=== PATIENT | male | born 1980 | race Two or more races ===

== ENCOUNTER 2017-12-24 12:20 | Emergency (ER) | payer OTHER ==
[~2017-12-24] VITALS: Ht 172.7 cm; Wt 65.8 kg
[~2017-12-24 12:20] MED LIST: AMOXICILLIN500 MG ORAL; ROBITUSSIN COU118 M4 PO
--- NOTE | 2017-12-24 13:19 | Emergency Room Report ---
History of Present Illness General Chief Complaint: Sore Throat Source: Patient Present Illness HPI 37-year-old male presents to the emergency department complaining of 6 out of 10 in severity sore throat 3 days. Denies fevers or chills. Patient reports some left ear pain as well denies headache, neck pain or stiffness, cough,, recent travel or ill contacts. Patient reports some nasal congestion and rhinorrhea. Pain is exacerbated with swallowing. Denies significant pmhx. Allergies: Coded Allergies: No Known Allergies (Unverified , 12/24/17) Patient History Past Medical History: see triage record Past Surgical History: none Pertinent Family History: none Immunizations: UTD Reviewed Nursing Documentation: PMH: Agreed; PSxH: Agreed Nursing Documentation-PMH Past Medical History: No Stated History Review of Systems All Other Systems: negative except mentioned in HPI Physical Exam Vital Signs Date Time Temp Pulse Resp B/P (MAP) Pulse Ox O2 Delivery O2 Flow Rate FiO2 12/24/17 12:30 98.4 55 16 114/58 98 Room Air Sp02 EP Interpretation: reviewed, normal General Appearance: no apparent distress, alert, GCS 15, non-toxic Head: normocephalic, atraumatic Eyes: bilateral eye normal inspection, bilateral eye PERRL ENT: hearing grossly normal, normal voice, TMs + canals normal - moderate cerumen in the left ear, no evidence of infection. , uvula midline, moist mucus membranes, nasal congestion, pharyngeal erythema - no exudates or tonsillar swelling. , other Neck: full range of motion Respiratory: lungs clear, normal breath sounds, speaking full sentences Cardiovascular #1: regular rate, rhythm, no edema Musculoskeletal: back normal, gait/station normal, normal range of motion, non- tender Neurologic: alert, oriented x3, responsive, motor strength/tone normal, sensory intact, normal gait, speech normal, grossly normal Psychiatric: judgement/insight normal Skin: normal color, no rash, warm/dry, well hydrated Lymphatic: no adenopathy Medical Decision Making PA Attestation Dr. nash is my supervising Physician whom patient management has been discussed with. Diagnostic Impression: Primary Impression: Acute viral pharyngitis Additional Impression: Excessive cerumen in left ear canal ER Course 37-year-old male presents to the emergency department complaining of 6 out of 10 in severity sore throat 3 days. Denies fevers or chills. Patient reports some left ear pain as well denies headache, neck pain or stiffness, cough,, recent travel or ill contacts. Patient reports some nasal congestion and rhinorrhea. Pain is exacerbated with swallowing. Denies significant pmhx. 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 is afebrile H&PE are most consistent with: pharyngitis presumed to be viral , does not meet centor criteria. --moderate cerumen in the left ear, no evidence of infection. ORDERS: None required at this time as the diagnosis is clinical ED INTERVENTIONS: none required at this time. DISCHARGE: At this time pt. is stable for d/c to home. Will provide printed patient care instructions, and any necessary prescriptions. Care plan and follow up instructions have been discussed with the patient prior to discharge. Last Vital Signs Date Time Temp Pulse Resp B/P (MAP) Pulse Ox O2 Delivery O2 Flow Rate FiO2 12/24/17 12:30 98.4 55 16 114/58 98 Room Air Disposition: HOME, SELF-CARE Condition: Stable Scripts Carbamide Peroxide (DEBROX) 15 Ml Drops 10 DROP LEFT EAR TWICE A DAY for 4 Days, #15 ML 0 Refills Prov: Dorinda Torres 12/24/17 Acetaminophen* (TYLENOL EXTRA STRENGTH*) 500 Mg Tablet 500 MG ORAL Q6H, #20 TAB 0 Refills Prov: Dorinda Torres 12/24/17 Lidocaine HCl (Lidocaine HCl Viscous) 100 Ml Solution 10 MG MM QID, #220 ML Prov: Dorinda Torres 12/24/17 Patient Instructions: Sore Throat Additional Instructions: Take medications as directed. Follow up with a Primary Care Provider in 3-5 days, even if your symptoms have resolved. --Please review list of primary care clinics, if you do not already have a primary care provider Return sooner to ED if new symptoms occur, or current symptoms become worse. - Please note that this Emergency Department Report was dictated using [employer] service clerk technology software, occasionally this can lead to erroneous entry secondary to interpretation by the dictation equipment. Dorinda Torres Dec 24, 2017 13:19
[2017-12-24] MEDS ORDERED: DEBROX15 M1 LEFT EAR (13:23)
[2017-12-24] MEDS ORDERED: LIDOCAINE20 MG/1 M1 MM (13:23)
[2017-12-24] MEDS ORDERED: TYLENOL EXTRA500 MG ORAL (13:23)
[2017-12-24 13:30] VITALS: BP 115/62
[2017-12-24 13:35] VITALS: BP 115/62
== END 2017-12-24 13:35 | disposition home or self-care (01) ==
LOC: EMR 13:18
DX: J02.8 Acute pharyngitis due to other specified organisms (principal); B97.89 Other viral agents as the cause of diseases classified elsewhere; H61.22 Impacted cerumen, left ear
CPT/HCPCS: 99283

== ENCOUNTER 2018-01-21 12:52 | Emergency (ER) | payer OTHER ==
[~2018-01-21] VITALS: Ht 172.7 cm; Wt 70.3 kg
[~2018-01-21 12:52] MED LIST changes: +DEBROX15 M1 LEFT EAR; +LIDOCAINE20 MG/1 M1 MM; +TYLENOL EXTRA500 MG ORAL
[2018-01-21 13:05] VITALS: BP 105/67
[2018-01-21] MEDS ORDERED: TYLENOL EXTRA500 MG ORAL (13:23)
[2018-01-21] MEDS ORDERED: AMOXICILLIN500 MG ORAL (13:23)
--- NOTE | 2018-01-21 13:23 | Emergency Room Report ---
History of Present Illness General Chief Complaint: Sore Throat Source: Patient Present Illness HPI 37-year-old male patient presents the ER complaining of sore throat for the past week. Reports history of similar symptoms in the past. Denies fever during this time. Reports took 1 dose of Tylenol earlier this week, states has not taken it since that time. Denies cough. Denies chest pain, shortness of breath, vomiting. Patient was seen here in the ER 1 month ago, discharged home with viral pharyngitis at that time. Allergies: Coded Allergies: No Known Allergies (Unverified , 01/21/18) Patient History Past Medical History: see triage record Reviewed Nursing Documentation: PMH: Agreed; PSxH: Agreed Nursing Documentation-PMH Past Medical History: No Stated History Review of Systems All Other Systems: negative except mentioned in HPI Physical Exam Vital Signs Date Time Temp Pulse Resp B/P (MAP) Pulse Ox O2 Delivery O2 Flow Rate FiO2 01/21/18 12:59 98.6 52 16 106/64 97 Room Air Sp02 EP Interpretation: reviewed, normal General Appearance: well appearing, no apparent distress, alert, GCS 15, non- toxic Head: normocephalic, atraumatic Eyes: bilateral eye normal inspection, bilateral eye PERRL ENT: hearing grossly normal, normal pharynx, no angioedema, normal voice, uvula midline, moist mucus membranes, nasal congestion, tonsillar swelling, tonsillar exudate, other - uvula midline Neck: full range of motion Respiratory: lungs clear, normal breath sounds, no rhonchi, no respiratory distress, no accessory muscle use, no wheezing, speaking full sentences Cardiovascular #1: regular rate, rhythm, no edema Musculoskeletal: back normal, digits/nails normal, gait/station normal, normal range of motion, non-tender Neurologic: alert, oriented x3, responsive, motor strength/tone normal, sensory intact Skin: no rash Lymphatic: adenopathy - Cervical Medical Decision Making PA Attestation Dr. Zuniga is my supervising Physician whom patient management has been discussed with. Diagnostic Impression: Primary Impression: Tonsillitis ER Course Pt presents to ED c/o sore throat. DDX considered but are not limited to influenza, viral URI, strep throat, pharyngitis, tonsillitis. no uvula deviation, no neck stiffness, no stridor, no tripoding, low suspicion for peritonsillar abscess. VITAL SIGNS are WNL, patient is afebrile ER COURSE: tonsillar exudates, tonsillar swelling, lymphadenopathy, no cough, likely pharyngitis. Will provide antibiotic treatment. Continue taking Tylenol for relief of symptoms. saltwater gargles. Drink plenty of fluids. Symptomatic treatment. DISCHARGE: Rx provided for amoxicillin -Rx given for Acetaminophen for fever/pain. At this time pt is stable for d/c to home. Patient resting comfortably, in no acute distress, nontoxic appearing, talking without difficulty Patient to take medications as instructed. Will provide with patient care instructions and any necessary prescriptions. Care plan and follow-up instructions provided. Patient instructed to follow-up with primary care provider in 3 - 5 days. Patient questions asked and answered. ER precautions given. Patient instructed to return to ER immediately for any new or worsening of symptoms including but not limited to fever, SOB, difficulty swallowing. - Please note that this Emergency Department Report was dictated using [employer] process engineer technology software, occasionally this can lead to erroneous entry secondary to interpretation by the dictation equipment. Last Vital Signs Date Time Temp Pulse Resp B/P (MAP) Pulse Ox O2 Delivery O2 Flow Rate FiO2 01/21/18 12:59 98.6 52 16 106/64 97 Room Air Disposition: HOME, SELF-CARE Condition: Stable Scripts Acetaminophen* (TYLENOL EXTRA STRENGTH*) 500 Mg Tablet 500 MG ORAL Q8H PRN for Prn Headache/Temp > 101, #30 TAB 0 Refills Prov: Al Obregon 01/21/18 Amoxicillin* (AMOXIL*) 500 Mg Capsule 500 MG ORAL BID for 7 Days, #14 CAP Prov: Al Obregon 01/21/18 Patient Instructions: Tonsillitis Additional Instructions: Followup with primary care provider in 3 -5 days. Salt water gargles Take Tylenol for pain and fever symptoms Drink plenty of water. Take medications as directed. Patient questions asked and answered. ER precautions given, patient instructed to return to ER immediately for any new or worsening of symptoms including but not limited to intractable vomiting, difficulty breathing, inability to eat. Al Obregon Jan 21, 2018 13:23
[2018-01-21 13:39] VITALS: BP 112/68
== END 2018-01-21 13:39 | disposition home or self-care (01) ==
LOC: EMR 13:20
DX: J03.90 Acute tonsillitis, unspecified (principal)
CPT/HCPCS: 99283

== ENCOUNTER 2018-10-03 15:29 | Emergency (ER) | payer BC, OTHER ==
[~2018-10-03] VITALS: Ht 172.7 cm; Wt 65.8 kg
[2018-10-03] MEDS ORDERED: NKM (15:37)
--- NOTE | 2018-10-03 15:38 | NUR ---
ED Nurse Note: pt walked in to ED C/O coughing for the last 5 days. pt states he coughs up greenish sputum at times, but most of the time is dry cough. VSS. pt is alert x4.
[2018-10-03 15:39] VITALS: BP 120/60
--- NOTE | 2018-10-03 15:57 | Emergency Room Report ---
History of Present Illness General Chief Complaint: Upper Respiratory Illness Source: Patient Present Illness HPI 38-year-old male with no significant past medical history here complaining of 3 days of 10 out of 10 sore throat and cough with green phlegm as well as congestion. Denies fever and chills. Patient reports that he has been a tobacco smoker for many years. Denies chest pain, shortness of breath, wheezing , abdominal pain, nausea vomiting. Has not taken medication for symptom relief. Patient is in no distress. Denies recent travel and sick contact Allergies: Coded Allergies: No Known Allergies (Unverified , 01/21/18) Patient History Past Medical History: see triage record Past Surgical History: unable to obtain Pertinent Family History: none Social History: Reports: smoking - tobacco Immunizations: UTD Reviewed Nursing Documentation: PMH: Agreed; PSxH: Agreed Nursing Documentation-PMH Past Medical History: No Stated History Review of Systems All Other Systems: negative except mentioned in HPI Physical Exam Vital Signs Date Time Temp Pulse Resp B/P (MAP) Pulse Ox O2 Delivery O2 Flow Rate FiO2 10/03/18 15:33 98.6 68 19 121/60 (80) 95 Room Air 10/03/18 15:40 97 Sp02 EP Interpretation: reviewed, normal General Appearance: no apparent distress, alert, GCS 15, non-toxic Head: normocephalic, atraumatic Eyes: bilateral eye normal inspection, bilateral eye PERRL ENT: TMs + canals normal, pharyngeal erythema, tonsillar exudate Neck: no meningismus, other - Anterior cervical lymphadenopathy Respiratory: chest non-tender, lungs clear, normal breath sounds, no rhonchi, no wheezing, speaking full sentences Cardiovascular #1: regular rate, rhythm, no edema, no murmur Gastrointestinal: normal bowel sounds, non tender, soft, non-distended, no guarding, no rebound Genitourinary: normal inspection, no CVA tenderness Musculoskeletal: normal inspection, back normal Neurologic: alert, oriented x3, responsive, motor strength/tone normal, sensory intact, speech normal Psychiatric: judgement/insight normal, memory normal, mood/affect normal, no suicidal/homicidal ideation Skin: no rash Lymphatic: adenopathy - Anterior cervical Medical Decision Making PA Attestation Diagnosis and treatment plans were reviewed and discussed with my supervising physician Dr. Shah Diagnostic Impression: Primary Impression: Tonsillitis with exudate ER Course 38-year-old male with no significant past medical history here complaining of 3 days of 10 out of 10 sore throat and cough with green phlegm as well as congestion. Denies fever and chills. Patient reports that he has been a tobacco smoker for many years. Denies chest pain, shortness of breath, wheezing , abdominal pain, nausea vomiting. Has not taken medication for symptom relief. Patient is in no distress. Denies recent travel and sick contact Ddx considered but are not limited to: strep pharyngitis, URI, tonsilitis, peritonsillar absacess, influneza Vital signs: are WNL, pt. is afebrile H&PE are most consistent with: Tonsillitis with exudate ORDERS: Azithromycin, Phenergan, Flonase ED INTERVENTIONS: None required at this time. DISCHARGE: At this time pt. is stable for d/c to home. Will provide printed patient care instructions, and any necessary prescriptions. Care plan and follow up instructions have been discussed with the patient prior to discharge. Take medication as directed follow-up with primary care provider worsening symptoms return to the emergency room refrain from smoking Last Vital Signs Date Time Temp Pulse Resp B/P (MAP) Pulse Ox O2 Delivery O2 Flow Rate FiO2 10/03/18 15:40 75 17 Room Air 97 10/03/18 15:39 98.5 120/60 97 Disposition: HOME, SELF-CARE Condition: Stable Patient Instructions: Tonsillitis, [id number] Additional Instructions: Take medication as directed follow-up with primary care provider worsening symptoms return to the emergency room refrain from smoking Lele Zuñiga Oct 03, 2018 15:57
[2018-10-03] MEDS ORDERED: FLONASE ALLERG9.9 ML NS (15:59)
[2018-10-03] MEDS ORDERED: ZITHROMAX250 MG ORAL (15:59)
[2018-10-03] MEDS ORDERED: PROMETHAZI6.25 MG/1 ORAL (15:59)
[2018-10-03 16:08] VITALS: BP 126/64
--- NOTE | 2018-10-03 16:08 | NUR ---
ER DISCHARGE NOTE: Patient is cleared to be discharged per ERMD, pt is aox4, on room air, with stable vital signs. pt was given dc and prescription instructions, pt was able to verbalize understanding, pt id band removed without complications. pt is able to ambulate with steady gait. pt took all belongings.
== END 2018-10-03 16:08 | disposition home or self-care (01) ==
LOC: EMR 15:55
DX: J03.90 Acute tonsillitis, unspecified (principal); F17.200 Nicotine dependence, unspecified, uncomplicated
CPT/HCPCS: 99282

== ENCOUNTER 2018-11-22 14:27 | Emergency (ER) | payer BC ==
[~2018-11-22] VITALS: Ht 172.7 cm; Wt 65.8 kg
[~2018-11-22 14:27] MED LIST changes: +FLONASE ALLERG9.9 ML NS; +NKM; +PROMETHAZI6.25 MG/1 ORAL; +ZITHROMAX250 MG ORAL
[2018-11-22 14:45] VITALS: BP 114/64
--- NOTE | 2018-11-22 14:55 | NUR ---
ED Nurse Note: ambulated in to ED due to soethroat since Sat. Pt states that he smoked alot on sat but stoped after having symptoms. Pt reports [facility] ED previous visit for same reasons.
--- NOTE | 2018-11-22 15:33 | Emergency Room Report ---
History of Present Illness General Chief Complaint: Sore Throat Source: Patient Present Illness HPI 38 YO male presents to the emergency department complaining of 6 out of 10 severity progressive sore throat with fevers and chills responding well to Motrin x7 days. Patient denies cough he denies neck pain or stiffness he denies headache or photophobia. Patient denies recent travel or ill contacts with similar symptoms. Patient reports swallowing exacerbates his symptoms to 10 out of 10 severity. No other aggravating or relieving factors at this time. Allergies: Coded Allergies: No Known Allergies (Unverified , 01/21/18) Patient History Past Medical History: see triage record Past Surgical History: none Pertinent Family History: none Reviewed Nursing Documentation: PMH: Agreed; PSxH: Agreed Nursing Documentation-PMH Past Medical History: No Stated History Review of Systems All Other Systems: negative except mentioned in HPI Physical Exam Vital Signs Date Time Temp Pulse Resp B/P (MAP) Pulse Ox O2 Delivery O2 Flow Rate FiO2 11/22/18 14:40 98.4 61 18 114/64 (81) 97 Room Air Sp02 EP Interpretation: reviewed, normal General Appearance: no apparent distress, alert, GCS 15, non-toxic Head: normocephalic, atraumatic Eyes: bilateral eye normal inspection, bilateral eye PERRL ENT: hearing grossly normal, normal voice, tonsillar swelling, pharyngeal erythema, tonsillar exudate Neck: full range of motion, no meningismus Respiratory: lungs clear, normal breath sounds, no respiratory distress, no wheezing, speaking full sentences Musculoskeletal: gait/station normal, normal range of motion, non-tender Neurologic: alert, oriented x3, responsive, motor strength/tone normal, sensory intact, speech normal, grossly normal Psychiatric: judgement/insight normal Skin: no rash Lymphatic: no adenopathy Medical Decision Making PA Attestation Dr. Ayala is my supervising Physician whom patient management has been discussed with. Diagnostic Impression: Primary Impression: Pharyngitis Qualified Codes: J02.0 - Streptococcal pharyngitis ER Course 38 YO male presents to the emergency department complaining of 6 out of 10 severity progressive sore throat with fevers and chills responding well to Motrin x7 days. Patient denies cough he denies neck pain or stiffness he denies headache or photophobia. Patient denies recent travel or ill contacts with similar symptoms. Patient reports swallowing exacerbates his symptoms to 10 out of 10 severity. No other aggravating or relieving factors at this time. 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 is afebrile H&PE are most consistent with: pharyngitis presumed strep. ORDERS: None required at this time as the diagnosis is clinical ED INTERVENTIONS: none required at this time. DISCHARGE: At this time pt. is stable for d/c to home. Will provide printed patient care instructions, and any necessary prescriptions. Care plan and follow up instructions have been discussed with the patient prior to discharge. Last Vital Signs Date Time Temp Pulse Resp B/P (MAP) Pulse Ox O2 Delivery O2 Flow Rate FiO2 11/22/18 14:40 98.4 61 18 114/64 (81) 97 Room Air Disposition: HOME, SELF-CARE Condition: Stable Patient Instructions: Tonsillitis Additional Instructions: Take medications as directed. Follow up with a Primary Care Provider in 3-5 days, even if your symptoms have resolved. Return sooner to ED if new symptoms occur, or current symptoms become worse. - Please note that this Emergency Department Report was dictated using [employer] technician technology software, occasionally this can lead to erroneous entry secondary to interpretation by the dictation equipment. Dorinda Torres Nov 22, 2018 15:33
[2018-11-22] MEDS ORDERED: LIDOCAINE VISC100 ML ORAL (15:34)
[2018-11-22] MEDS ORDERED: AUGMENTIN 875-1 EAC1 ORAL (15:34)
[2018-11-22] MEDS ORDERED: TYLENOL EXTRA500 MG ORAL (15:34)
[2018-11-22 15:40] VITALS: BP 121/71
== END 2018-11-22 15:42 | disposition home or self-care (01) ==
LOC: EMR 15:30
DX: J02.0 Streptococcal pharyngitis (principal)
CPT/HCPCS: 99281

== ENCOUNTER 2019-01-03 17:58 | Emergency (ER) | payer BC ==
[~2019-01-03] VITALS: Ht 172.7 cm; Wt 65.8 kg
[~2019-01-03 17:58] MED LIST changes: +AUGMENTIN 875-1 EAC1 ORAL; +LIDOCAINE VISC100 ML ORAL
[2019-01-03 18:10] VITALS: BP 119/80
--- NOTE | 2019-01-03 18:18 | NUR ---
ED Nurse Note: A/OX4. REPORTS OF HAVING SORETHROAT X 5 DAYS WITH COUGH. DENIES FEVER/CHILLS/SOB AND PT STATES THAT HE CAN TOLERATE ORAL INTAKE.
--- NOTE | 2019-01-03 18:36 | Emergency Room Report ---
History of Present Illness General Chief Complaint: Sore Throat Source: Patient Present Illness HPI 38-year-old male 5 days of sore throat, cough and congestion. Patient reports that in the past few months he has been getting pharyngitis, and upper respiratory infection frequently. Has not been seen by primary care physician. Continues to smoke on a daily basis. Denies fever and chills, shortness of breath, chest pain, wheezing, palpitation, abdominal pain, nausea vomiting. Reports that he has minimal phlegm production posttussive. Pain control 5 out of 10 without radiation. Has not taken medication for symptom relief. Up-to- date with immunization. Denies recent travel, sick contact. Sitting comfortably with stable vital signs Allergies: Coded Allergies: No Known Allergies (Unverified , 01/21/18) Patient History Past Medical History: see triage record Past Surgical History: unable to obtain Pertinent Family History: none Social History: Reports: smoking Immunizations: UTD Reviewed Nursing Documentation: PMH: Agreed; PSxH: Agreed Nursing Documentation-PMH Past Medical History: No Stated History Review of Systems All Other Systems: negative except mentioned in HPI Physical Exam Vital Signs Date Time Temp Pulse Resp B/P (MAP) Pulse Ox O2 Delivery O2 Flow Rate FiO2 01/03/19 18:10 98.4 16 119/80 96 Room Air 01/03/19 18:10 62 Sp02 EP Interpretation: reviewed, normal General Appearance: no apparent distress, alert, GCS 15, non-toxic Head: normocephalic, atraumatic Eyes: bilateral eye normal inspection, bilateral eye PERRL ENT: hearing grossly normal, EOM grossly intact, no angioedema, normal voice, TMs + canals normal, tonsillar swelling, tonsillar exudate Neck: normal inspection, supple, no meningismus Respiratory: chest non-tender, lungs clear, normal breath sounds, no rhonchi, no respiratory distress, no retraction, no wheezing, speaking full sentences Cardiovascular #1: regular rate, rhythm, no edema, no murmur Gastrointestinal: non tender, soft Musculoskeletal: back normal, decreased range of motion, normal range of motion Neurologic: alert, motor strength/tone normal, oriented x3, sensory intact, responsive, speech normal Psychiatric: judgement/insight normal, memory normal, mood/affect normal, no suicidal/homicidal ideation Skin: no rash Lymphatic: no adenopathy Medical Decision Making PA Attestation All my diagnosis and treatment plans were reviewed ad discussed with my supervising physician Dr. Zuniga Diagnostic Impression: Primary Impression: Strep pharyngitis ER Course 38-year-old male 5 days of sore throat, cough and congestion. Patient reports that in the past few months he has been getting pharyngitis, and upper respiratory infection frequently. Has not been seen by primary care physician. Continues to smoke on a daily basis. Denies fever and chills, shortness of breath, chest pain, wheezing, palpitation, abdominal pain, nausea vomiting. Reports that he has minimal phlegm production posttussive. Pain control 5 out of 10 without radiation. Has not taken medication for symptom relief. Up-to- date with immunization. Denies recent travel, sick contact. Sitting comfortably with stable vital signs Ddx considered but are not limited to: strep pharyngitis, URI, tonsillitis, peritonsillar abscess, influneza Vital signs: are WNL, pt. is afebrile H&PE are most consistent with: Strep pharyngitis ORDERS: Azithromycin, Phenergan as patient reports that worked the best last time ED INTERVENTIONS: None required at this time. DISCHARGE: At this time pt. is stable for d/c to home. Will provide printed patient care instructions, and any necessary prescriptions. Care plan and follow up instructions have been discussed with the patient prior to discharge. Follow-up with a primary care provider for evaluation of recurrences of pharyngitis, avoid smoking, if worsening symptoms return to the emergency room Last Vital Signs Date Time Temp Pulse Resp B/P (MAP) Pulse Ox O2 Delivery O2 Flow Rate FiO2 01/03/19 18:10 98.4 62 16 119/80 (93) 96 Room Air Disposition: HOME, SELF-CARE Condition: Stable Scripts Azithromycin* (ZITHROMAX*) 250 Mg Tablet 250 MG ORAL DAILY, #6 TAB 0 Refills Take two tables once daily for 1 day, then one tablet once daily for 4 days. Prov: Lele Zuñiga 01/03/19 Promethazine Hcl (PROMETHAZINE HCL*) 6.25 Mg/5 Ml Syrup 5 ML ORAL Q6H, #120 ML 0 Refills Prov: Lele Zuñiga 01/03/19 Patient Instructions: Strep Throat Additional Instructions: Take medication as directed, follow-up with your primary care provider, avoid smoking, if worsening symptoms return to emergency room Lele Zuñiga Jan 03, 2019 18:36
[2019-01-03] MEDS ORDERED: ZITHROMAX250 MG ORAL (18:37)
[2019-01-03] MEDS ORDERED: PROMETHAZI6.25 MG/1 ORAL (18:37)
[2019-01-03 18:48] VITALS: BP 119/80
--- NOTE | 2019-01-03 18:48 | NUR ---
ED Nurse Note: Pt cleared by health care Provider for discharge. DC instructions/prescription was given and explained to pt and verbalized understanding of teachings. All medical deviecs such as ID band removed. Pt is AAO x4, ambulatory and left with all personal belongings.
== END 2019-01-03 18:50 | disposition home or self-care (01) ==
LOC: EMR 18:15
DX: J02.0 Streptococcal pharyngitis (principal); F17.200 Nicotine dependence, unspecified, uncomplicated
CPT/HCPCS: 99282